=== PATIENT | male | born 1995 | race Caucasian/White ===

== ENCOUNTER 2024-12-05 01:31 | Emergency (ER) | payer OTHER ==
[~2024-12-05] VITALS: Ht 182.9 cm; Wt 139.8 kg
[2024-12-05] MEDS ORDERED: TAB-TAB3 (01:52)
[2024-12-05] MEDS ORDERED: B-1100TA2 PO (01:52)
[2024-12-05] MEDS ORDERED: NALT50TA4 PO (01:52)
[2024-12-05] MEDS ORDERED: PANT40TA29 PO (01:52)
[2024-12-05] MEDS ORDERED: AMLO-140 PO (01:52)
[2024-12-05] MEDS ORDERED: LOSA100T46 PO (01:53)
[2024-12-05] MEDS ORDERED: METO1TAB33 PO (01:56)
[2024-12-05] MEDS ORDERED: ROPI5TAB19 PO (01:56)
[2024-12-05] MEDS ORDERED: MIRT1TAB PO (01:56)
[2024-12-05] MEDS ORDERED: TRAZ1TAB14 PO (01:56)
[2024-12-05] MEDS ORDERED: LOPI600T PO (01:56)
[2024-12-05] MEDS ORDERED: DOXY-440 PO (06:55)
[2024-12-05] MEDS: KETOROLAC 60MG 2ML VIAL IM ONE (07:01)
[2024-12-05 07:18] VITALS: BP 156/85; TEMP 97.3; O2SAT 97
== END 2024-12-05 07:21 | disposition home or self-care (01) ==
LOC: M ED 01:31
DX: L02.31 Cutaneous abscess of buttock (principal); F17.200 Nicotine dependence, unspecified, uncomplicated; Z79.899 Other long term (current) drug therapy; Z79.2 Long term (current) use of antibiotics
CPT/HCPCS: 87070; 87077; 87186; 96372; 99283; J1885